=== PATIENT | male | born 1980 | race American Indian/Alaskan Native ===

== ENCOUNTER 2016-12-16 14:43 | Outpatient (CLI) | payer OTHER ==
--- NOTE | 2016-12-16 15:37 | XRay Report ---
PARANASAL SINUSES: History: Pain, headache. Multiple views of the paranasal sinuses demonstrate normal formation with no abnormal mucoperiosteal thickening or fluid levels. The bony yañez are intact. IMPRESSION: Normal study.
== END 2016-12-16 14:44 | disposition home or self-care (01) ==
LOC: XRAY 14:43
PROVIDERS: ATTEND Chiropractor
DX: R51 Headache (principal); H92.09 Otalgia, unspecified ear
CPT/HCPCS: 70220